=== PATIENT | male | born 1950 | race Caucasian/White ===

== ENCOUNTER 2018-10-22 16:52 | Emergency (ER) | payer OTHER, SELFPAY ==
[2018-10-22 17:05] VITALS: BP 146/89; PULSE 56; RESP 14; TEMP 36.5; O2SAT 96; BMI 33.6
--- NOTE | 2018-10-22 17:25 | DI.RAD.S_ITS ---
PROCEDURE: XR CHEST 1V INDICATIONS: chest pain TECHNIQUE: One view of the chest was acquired. COMPARISON: None. FINDINGS: Surgical changes and devices: None. Lungs and pleura: No pleural effusions or pneumothorax. Lungs are clear. Mediastinum: Mediastinal contours appear normal. Heart size is normal. Bones and chest wall: No suspicious bony lesions. Overlying soft tissues appear unremarkable. IMPRESSION: No acute pulmonary process. Dictated by: Erika Andersen M.D. on 10/22/2018 at 17:46 Approved by: Erika Andersen M.D. on 10/22/2018 at 17:47
[2018-10-22 17:32] LABS: Add Manual Diff / Slide Review NO; Basophils Percent Auto 0.8 % (0-2); Eosinophils Percent Auto 2.3 % (2-4); Hematocrit 42.5 % (41-53); Hemoglobin 15.1 g/dL (13.5-17.5); Lymphocytes Percent Auto 24.6 % (25-40); Mean Corpuscular HGB Conc 35.6 % (30-36); Mean Corpuscular Hemoglobin 32.8 PG (26-34); Mean Corpuscular Volume 92.1 fL (80-100); Neutrophils Absolute Auto 4200 /uL (1500-7000); Neutrophils Percent Auto 65.3 % (50-75); Platelet Count 227 X10^3/uL (150-400); Red Blood Cell Count 4.62 X10^6/uL (4.5-5.9); Red Cell Distribution Width 12.6 % (11.6-14.8); White Blood Cell Count 6.5 X10^3/uL (4.5-11.0)
--- NOTE | 2018-10-22 17:33 | PC.NURSE ---
pt states he has been having high blood pressure since Reuben, Provider at bedside. Pt denies CP at this time. Pt states he is not currently having any pain. No new orders at this time.
[2018-10-22 17:34] LABS: Prothrombin Time 11.4 SECONDS (10.1-12.7)
[2018-10-22 17:37] LABS: PTT Partial Thromboplastin Tim 36 SECONDS (26.4-36.2)
[2018-10-22] MEDS: SODIUM CHLORIDE 0.9% 1,000 ML 150 ML IV (17:46)
[2018-10-22 17:47] LABS: Alanine Aminotransferase 24 IU/L (21-72); Albumin 4.8 g/dL (3.5-5.0); Albumin Globulin Ratio 1.4 (1.0-2.8); Alkaline Phosphatase 95 U/L (38-126); Aspartate Aminotransferase 33 IU/L (17-59); Bilirubin Total 0.7 mg/dL (0.2-1.3); Blood Urea Nitrogen 19 mg/dL (9-20); Calcium 9.5 mg/dL (8.4-10.2); Carbon Dioxide 28 mmol/L (22-32); Chloride 102 mmol/L (98-107); Creatine Kinase 80 U/L (55-170); Estimated Glomerular Filt Rate > 60.0 mL/min (>60); Globulin 3.4 g/dL (1.7-4.1); Glucose 94 mg/dL (80-110); Lipase 89 U/L (23-300); Sodium 141 mmol/L (137-145); Total Protein 8.2 g/dL (6.3-8.2)
[2018-10-22 17:49] LABS: HEMOLYSIS 74 (0-50)
[2018-10-22 17:50] LABS: Potassium 4.8 mmol/L (3.4-5.1)
[2018-10-22 18:11] LABS: Troponin I < 0.012 ng/mL (0.01-0.034)
--- NOTE | 2018-10-22 18:52 | ED_ITS ---
HPI - Dizziness General Chief Complaint: Dizziness Stated Complaint: dizziness, abn EKG Time Seen by Provider: 10/22/18 17:19 Source: patient Mode of arrival: ambulatory Limitations: no limitations History of Present Illness HPI Narrative: The patient is a 68-year-old male who presents with dizziness, sent from the walk-in clinic with EKG changes. He says he has been having dizzy episodes off and on for the last 2 weeks. They last for 1-3 seconds. He has no chest pain heart palpitations nausea weakness or vision changes. His friend who is a nurse practitioner took his blood pressure at some point decided it was elevated him and started him on some lisinopril which is not his own. He went to the walk-in clinic today for the dizzy episodes. The dizzy spells come on at random, not instigated. Related Data Home Medications Medication Instructions Recorded Confirmed lisinopril 10 mg tablet 20 mg PO DAILY 10/22/18 10/22/18 Allergies Allergy/AdvReac Type Severity Reaction Status Date / Time No Known Drug Allergies Allergy Verified 10/22/18 17:19 Review of Systems Review of Systems All systems reviewed & are unremarkable except as noted in HPI and below Constitutional Denies chills, Denies fever(s), Denies lethargy and Denies weakness ENT Ears, Nose, Mouth, and Throat: Reports dizziness Cardiovascular Denies chest pain, Denies irregular heart rhythm, Denies lightheadedness, Denies palpitations, Denies dyspnea, Denies dyspnea on exertion and Denies orthopnea Respiratory Denies cough, Denies dyspnea, Denies dyspnea on exertion and Denies wheezing Gastrointestinal Gastrointestinal: Denies abdominal pain, Denies change in bowel habits, Denies diarrhea, Denies nausea and Denies vomiting Genitourinary Denies hematuria, Denies flank pain, Denies urinary incontinence and Denies urinary urgency Musculoskeletal Denies back pain, Denies muscle weakness, Denies numbness and Denies tingling Integumentary/Breasts Denies pruritus, Denies erythema, Denies rash and Denies wounds Neurologic Reports as per HPI, Denies confusion, Reports dizziness, Denies numbness, Denies tingling and Denies weakness Psychiatric Denies anxiety, Denies confusion, Denies depression, Denies homicidal ideation and Denies suicidal ideation Endocrine Denies palpitations Allergic/Immunologic Denies wheezing FOR[facility]LY [facility] Medical History Hearing loss (Chronic) Erectile dysfunction (Chronic) 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 Grandfather Tuberculosis Grandmother Tuberculosis Grandfather Syphilis Grandmother No problems noted. Family/Other Diabetes mellitus Social History Smoking Status: Former smoker Exam Initial Vital Signs Initial Vital Signs: Vital Signs Temperature 97.7 F 10/22/18 17:05 Pulse Rate 56 L 10/22/18 17:05 Respiratory Rate 14 10/22/18 17:05 Blood Pressure 146/89 H 10/22/18 17:05 Pulse Oximetry 96 10/22/18 17:05 GENERAL: Well-appearing, well-nourished and in no acute distress. HEENT: Head atraumatic,EOMI, pupils reactive, face symmetric CARDIOVASCULAR: Regular rate and rhythm without murmurs, rubs or gallops. RESPIRATORY: Breath sounds equal bilaterally, no wheezes rales or rhonchi. ABDOMEN: Soft, nontender. Normoactive bowel sounds all 4 quadrants. No guarding or rebound. EXTREMITIES: Normal range of motion, no clubbing or edema. Neurovascularly intact NEUROLOGICAL: Alert and oriented x4.Normal gait and speech. Cranial nerves II through XII grossly intact. Medical Technicians strength equal bilaterally SKIN: Warm, dry, no laceration, no petechiae, no rashes or lesions. Scores HEART Score Heart Score history: Slightly Suspicious Heart Score EKG: Normal Heart Score Age: > or = 65 years old Heart Score risk factors: No known risk factors Heart Score troponin: < or = to normal limit Heart Score Total: 2 Course Orders Ordered: ED Orders 10/22/18 17:19 Complete Blood Count AUTO DIFF Stat Comprehensive Metabolic Panel Stat Lipase Stat Partial Thromboplastin Time Stat Prothrombin Time INR Stat Troponin & CK Cardiac Panel Stat 10/22/18 17:25 XR chest 1V Stat Sodium Chloride (Normal Saline 0.9%) 1,000 mls @ 150 mls/hr IV CONT KEITH Last Infusion: 10/22/18 18:54 Dose: 0 mls/hr Admin: 10/22/18 17:46 Dose: 150 mls/hr Vital Signs - 8 hr 10/22/18 17:05 Temperature 97.7 F Pulse Rate 56 L Respiratory Rate 14 Blood Pressure 146/89 H Pulse Oximetry 96 MDM - Dizziness Lab Data Attestation: I reviewed the patient's lab results. Result diagrams: 10/22/18 17:19 10/22/18 17:19 Lab Results 10/22/18 10/22/18 10/22/18 Range/Units 17:19 17:19 17:19 WBC 6.5 (4.5-11.0) X10^3/uL RBC 4.62 (4.5-5.9) X10^6/uL Hgb 15.1 (13.5-17.5) g/dL Hct 42.5 (41-53) % MCV 92.1 (80-100) fL MCH 32.8 (26-34) PG MCHC 35.6 (30-36) % RDW 12.6 (11.6-14.8) % Plt Count 227 (150-400) X10^3/uL Neut % (Auto) 65.3 (50-75) % Lymph % (Auto) 24.6 L (25-40) % [place] % (Auto) 7.0 (3-14) % Eos % (Auto) 2.3 (2-4) % Baso % (Auto) 0.8 (0-2) % Neut # (Auto) 4200 (1944-9314) /uL PT 11.4 (10.1-12.7) SECONDS INR 1.0 (0.9-1.3) APTT 36 (26.4-36.2) SECONDS Sodium 141 (137-145) mmol/L Potassium 4.8 (3.4-5.1) mmol/L Chloride 102 (98-107) mmol/L Carbon Dioxide 28 (22-32) mmol/L BUN 19 (9-20) mg/dL Creatinine 1.00 (0.66-1.25) mg/dL Estimated GFR > 60.0 (>60) mL/min BUN/Creatinine Ratio 19.0 (6-22) Glucose 94 (80-110) mg/dL Calcium 9.5 (8.4-10.2) mg/dL Total Bilirubin 0.7 (0.2-1.3) mg/dL AST 33 (17-59) IU/L ALT 24 (21-72) IU/L Alkaline Phosphatase 95 (38-126) U/L Total Creatine Kinase 80 (55-170) U/L CK-MB (CK-2) TNP CK-MB (CK-2) Rel Index TNP Troponin I < 0.012 (0.01-0.034) ng/mL Total Protein 8.2 (6.3-8.2) g/dL Albumin 4.8 (3.5-5.0) g/dL Globulin 3.4 (1.7-4.1) g/dL Albumin/Globulin Ratio 1.4 (1.0-2.8) Lipase 89 (23-300) U/L Urine Dip Bedside Urine Glucose Negative Bedside Urine Bilirubin - Negative Bedside Urine Ketone - Negative Urine Specific [place] 1.015 Bedside Urine Occult Blood - Negative Bedside Urine pH 6.0 Bedside Urine Protein - Negative Bedside Urine Urobilinogen - Negative Bedside Urine Nitrite - Negative Bedside Urine Leukocytes - Negative Esterase ECG Data Attestation: I personally reviewed and interpreted this ECG as follows: Prior ECG tracings: available for review Interpretation: Normal sinus rhythm rate [address] changes no T-wave inversions actually looks much better from walk-in clinic EKG. W[place] interval 221 1st degree AV block EKG 2. Normal sinus rhythm rate 50 [place] [address] changes similar to prior Discharge Plan Departure Patient Disposition: Home Clinical Impression: Vertigo Instructions: Essential Hypertension Activity Restrictions/Additional Instructions: *You have been diagnosed with dizzy spell *What to do: Dizzy spell kalyanr may not be related to elevated blood pressure. Recommend that he take of blood pressure once a day and record it. He may require further workup with a PCP. EKG, chest x-ray and blood work within normal limits today. *Continue to take medications as directed *Follow up with your primary care provider in 2-3 days *Return to ER if you should have chest pain, shortness of breath, weakness on 1 side, difficulty speaking slurring of speech, facial droop or any new, worsening or concerning symptoms Prescriptions: No Action lisinopril 10 mg tablet 20 mg PO DAILY RF: 0 Referrals: Kwame Jean MD [Physician] -
[2018-10-22 19:09] VITALS: BP 146/77; PULSE 55; RESP 14; O2SAT 96
== END 2018-10-22 19:10 | disposition home or self-care (01) ==
PROVIDERS: Emergency Provider Emergency Medicine
DX: R42 Dizziness and giddiness (principal)
CPT/HCPCS: 36591; 71045; 80053; 81003; 82550; 83690; 84484; 85025; 85610; 85730; 93005; 96360; 99283; 99285

== ENCOUNTER 2019-02-18 17:14 | Emergency (ER) | payer OTHER, MEDICAID, SELFPAY ==
[2019-02-18] VITALS (10 sets, daily range): BP systolic 124–143; BP diastolic 79–92; PULSE 83–98; RESP 16–22; TEMP 35.4; O2SAT 95–100
--- NOTE | 2019-02-18 17:35 | DI.CT.S_ITS ---
PROCEDURE: CT ANGIO CHEST PE PROTOCOL INDICATIONS: syncope and sob TECHNIQUE: After the administration of intravenous contrast, 2 mm thick sections acquired from the pulmonary apices to the posterior costophrenic angles. 3-dimensional maximum intensity projection (MIP) coronal and sagittal reformats were then acquired through the thorax. For radiation dose reduction, the following was used: automated exposure control, adjustment of mA and/or kV according to patient size. COMPARISON: None. FINDINGS: Image quality: Excellent. Pulmonary arteries: Pulmonary arteries are normal in size, and demonstrate no intraluminal filling defects to suggest central pulmonary embolism. Lungs and pleura: No acute consolidation. Scattered subsegmental atelectasis and/or scarring. No pleural effusions or pneumothorax. Central and peripheral airways are patent. Mediastinum: Heart size is normal. Coronary artery calcifications are present. , without pericardial effusion. No mediastinal or hilar adenopathy. Thoracic aorta is normal in caliber and enhancement. Esophagus is normal in caliber, without hiatal hernia. Bones and chest wall: No suspicious bony lesions. Ribs and thoracic spine appear intact throughout. Thyroid gland negative. No axillary or supraclavicular adenopathy. Abdomen: Visualized upper abdominal solid organs appear normal in the early arterial phase of enhancement. IMPRESSION: No evidence of pulmonary embolism. No aortic dissection. Scattered scarring/atelectasis without focal consolidation. Coronary artery disease. Dictated by: Saleem Mtz M.D. on 02/18/2019 at 18:51 Approved by: Saleem Mtz M.D. on 02/18/2019 at 18:54
[2019-02-18] MEDS: SODIUM CHLORIDE 0.9% 1,000 ML 1000 ML IV (17:45)
[2019-02-18 17:46] LABS: Add Manual Diff / Slide Review NO; Basophils Absolute Auto 100 /uL (0-100); Basophils Percent Auto 0.8 % (0-2); Eosinophils Absolute Auto 100 /uL (0-450); Eosinophils Percent Auto 1.1 % (2-4); Hematocrit 43.1 % (41-53); Hemoglobin 14.8 g/dL (13.5-17.5); Lymphocytes Absolute Auto 1800 /uL (1100-4500); Lymphocytes Percent Auto 23.2 % (25-40); Mean Corpuscular HGB Conc 34.4 % (30-36); Mean Corpuscular Hemoglobin 32.4 PG (26-34); Mean Corpuscular Volume 94.1 fL (80-100); Monocytes Absolute Auto 600 /uL (0-900); Monocytes Percent Auto 7.4 % (3-14); Neutrophils Absolute Auto 5200 /uL (1500-7000); Neutrophils Percent Auto 67.5 % (50-75); Platelet Count 252 X10^3/uL (150-400); Red Blood Cell Count 4.58 X10^6/uL (4.5-5.9); Red Cell Distribution Width 13.2 % (11.6-14.8); White Blood Cell Count 7.8 X10^3/uL (4.5-11.0)
--- NOTE | 2019-02-18 17:50 | PC.NURSE ---
Pt feeling better,less dizzy and is not as pale as he was when he arrived to ED.
[2019-02-18 17:51] LABS: Alanine Aminotransferase 29 IU/L (21-72); Albumin 4.8 g/dL (3.5-5.0); Albumin Globulin Ratio 1.7 (1.0-2.8); Alkaline Phosphatase 102 U/L (38-126); Aspartate Aminotransferase 37 IU/L (17-59); BUN Creatinine Ratio 16.4 (6-22); Bilirubin Total 0.8 mg/dL (0.2-1.3); Blood Urea Nitrogen 18 mg/dL (9-20); Calcium 9.2 mg/dL (8.4-10.2); Carbon Dioxide 26 mmol/L (22-32); Chloride 104 mmol/L (98-107); Creatine Kinase 185 U/L (55-170); Estimated Glomerular Filt Rate > 60.0 mL/min (>60); Globulin 2.9 g/dL (1.7-4.1); Glucose 117 mg/dL (80-110); HEMOLYSIS < 15 (0-50); Sodium 140 mmol/L (137-145); Total Protein 7.7 g/dL (6.3-8.2)
[2019-02-18 18:03] LABS: Troponin I < 0.012 ng/mL (0.01-0.034)
--- NOTE | 2019-02-18 18:03 | ED.GENADULT ---
HPI - General Adult General Chief complaint: Syncope Stated complaint: Collapsed Time Seen by Provider: 02/18/19 17:35 Source: patient Mode of arrival: ambulatory Limitations: no limitations History of Present Illness HPI narrative: 68-year-old male here for evaluation of not feeling well and shortness of breath and presyncope. Patient states that he was at the gym at around 0700 hours this morning. He states that he was doing exercises when he was done with a set he became short of breath. He states that it took him much longer to catch his breath afterwards but was able to catch his breath after sitting for an extended period of time. He was able to continue exercising. He states that he went back to his baseline. Again in the afternoon he was just walking where again he became extremely short of breath. He states that it felt exactly like it did earlier in the day. He did have to rest and the symptoms resolved. The 3rd episode was approximately 1 hour prior to arrival here in the emergency department. He was coming down off of a ladder when again he became very short of breath he. He states that this time he had to go and sit down. He states that he was starting to see lights. He stated that he was nauseous but did not throw up. He states that he felt like he was going to pass out but never did pass out. He states that these episode lasted ?minutes ?he does not know exactly how long. They were not associated with any other symptoms. at the time of my evaluation patient states that he just feels ?depressed? meaning that he feels ?flu-like? with generalized malaise. He states that he still has not completely recovered from the last shortness of breath episode by the time I evaluated him here in the ER. Related Data Home Medications Medication Instructions [facility]ed [facility] B[facility] #1 ea 01/28/19 01/28/19 Allergies Allergy/AdvReac Type Severity Reaction Status Date / Time No Known Drug Allergies Allergy Verified 01/28/19 09:06 Review of Systems Constitutional Reports fatigue, Denies fever(s), Reports lethargy, Reports malaise and Reports weakness Eyes Denies change in vision ENT Ears, Nose, Mouth, and Throat: Denies vertigo, Reports disequilibrium and Denies sore throat Cardiovascular Denies chest pain, Denies syncope, Denies palpitations, Reports dyspnea and Reports dyspnea on exertion Respiratory Reports dyspnea and Reports dyspnea on exertion Gastrointestinal Gastrointestinal: Denies abdominal pain, Reports nausea and Denies vomiting Musculoskeletal Denies myalgias, Denies arthralgias and Reports tingling Integumentary/Breasts Denies lesions and Denies rash Neurologic Denies confusion, Denies vertigo, Denies syncope, Reports lack of coordination, Denies focal weakness, Reports tingling, Reports disequilibrium and Reports weakness Psychiatric Denies confusion Endocrine Reports fatigue, Denies flushing and Denies palpitations Hematologic/Lymphatic Denies easy bleeding and Denies easy bruising Allergic/Immunologic Denies urticaria [facility] Medical History Hearing loss (Chronic) Erectile dysfunction (Chronic) 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 Grandfather Tuberculosis Grandmother Tuberculosis Grandfather Syphilis Grandmother No problems noted. Family/Other Diabetes mellitus Social History Smoking Status: Former smoker Family History Father Suicide Mother No problems noted. Grandfather Tuberculosis Grandmother Tuberculosis Grandfather Syphilis Grandmother No problems noted. Family/Other Diabetes mellitus Social History Smoking Status: Former smoker Exam Initial Vital Signs Initial Vital Signs: Vital Signs Temperature 95.7 F L 02/18/19 17:15 Pulse Rate 98 H 02/18/19 17:15 Respiratory Rate 20 02/18/19 17:15 Blood Pressure 135/90 02/18/19 17:15 Pulse Oximetry 96 02/18/19 17:15 Const General: cooperative, comfortable, well developed, well groomed and No acute distress Orientation: alert, awake and oriented x3 HENMT Head: normal to inspection and normocephalic Resp Effort & Inspection: normal respiratory effort Auscultation: clear to auscultation bilaterally Cardio Rate: regular rate Rhythm: regular rhythm Pulses: radial pulses present GI Inspection: non-distended Palpation: soft, No firm and No tender Skin Lesions: no lesions Rashes: no rashes Neuro General: alert, awake and oriented x3 Cranial Nerves: CN's II-XI intact bilaterally Cognition: normal cognition Speech: speech normal Motor: muscle tone normal throughout Sensory Exam: no sensory deficits noted Extrem General: normal to inspection and capillary refill normal Psych Appearance: grossly normal and well kempt Scores HEART Score Heart Score history: Slightly Suspicious Heart Score EKG: Non-Specific repolarization disturbance Heart Score Age: > or = 65 years old Heart Score risk factors: No known risk factors Heart Score troponin: < or = to normal limit Heart Score Total: 3 Course Orders Ordered: ED Orders 02/18/19 17:20 B Type Natriuretic Peptide Stat Complete Blood Count AUTO DIFF Stat Comprehensive Metabolic Panel Stat Troponin & CK Cardiac Panel Stat 02/18/19 17:23 EKG-12 Lead Stat 02/18/19 17:35 CT angio chest PE protocol Stat 02/18/19 19:55 Respiratory Panel (Film Array) Stat Discontinued Medications Sodium Chloride (Normal Saline 0.9%) 1,000 mls @ 1,000 mls/hr IV BOLUS ONE Stop: 02/18/19 18:34 Last Infusion: 02/18/19 18:47 Dose: 0 mls/hr Admin: 02/18/19 17:45 Dose: 1,000 mls/hr Vital Signs - 8 hr 02/18/19 17:15 02/18/19 18:03 02/18/19 18:30 Temperature 95.7 F L Pulse Rate 98 H 85 84 Pulse Rate [Orthostatic Lying] Pulse Rate [Orthostatic Sitting] Pulse Rate [Orthostatic Standing] Respiratory Rate 20 22 18 Blood Pressure 135/90 Blood Pressure [Orthostatic Lying] Blood Pressure [Orthostatic Sitting] Blood Pressure [Orthostatic Standing] Blood Pressure [Right Arm] 124/79 Pulse Oximetry 96 96 100 02/18/19 18:44 02/18/19 19:02 02/18/19 19:03 Temperature Pulse Rate 84 85 Pulse Rate [Orthostatic Lying] 84 Pulse Rate [Orthostatic Sitting] 83 Pulse Rate [Orthostatic Standing] 85 Respiratory Rate Blood Pressure Blood Pressure [Orthostatic Lying] 133/82 Blood Pressure [Orthostatic Sitting] 134/89 Blood Pressure [Orthostatic Standing] 143/88 H Blood Pressure [Right Arm] 133/82 143/88 H Pulse Oximetry 02/18/19 19:30 02/18/19 20:00 02/18/19 20:30 Temperature Pulse Rate 84 84 84 Pulse Rate [Orthostatic Lying] Pulse Rate [Orthostatic Sitting] Pulse Rate [Orthostatic Standing] Respiratory Rate 20 17 16 Blood Pressure Blood Pressure [Orthostatic Lying] Blood Pressure [Orthostatic Sitting] Blood Pressure [Orthostatic Standing] Blood Pressure [Right Arm] 133/87 140/88 128/81 Pulse Oximetry 96 98 95 02/18/19 21:40 Temperature Pulse Rate 85 Pulse Rate [Orthostatic Lying] Pulse Rate [Orthostatic Sitting] Pulse Rate [Orthostatic Standing] Respiratory Rate 20 Blood Pressure Blood Pressure [Orthostatic Lying] Blood Pressure [Orthostatic Sitting] Blood Pressure [Orthostatic Standing] Blood Pressure [Right Arm] 131/92 H Pulse Oximetry 95 Medical Decision Making Lab Data Lab results reviewed: Yes I reviewed the patient's lab results. Result diagrams: 02/18/19 17:20 02/18/19 17:20 Lab Results 02/18/19 02/18/19 02/18/19 Range/Units 17:20 17:20 19:55 WBC 7.8 (4.5-11.0) X10^3/uL RBC 4.58 (4.5-5.9) X10^6/uL Hgb 14.8 (13.5-17.5) g/dL Hct 43.1 (41-53) % MCV 94.1 (80-100) fL MCH 32.4 (26-34) PG MCHC 34.4 (30-36) % RDW 13.2 (11.6-14.8) % Plt Count 252 (150-400) X10^3/uL Neut % (Auto) 67.5 (50-75) % Lymph % (Auto) 23.2 L (25-40) % Crosby % (Auto) 7.4 (3-14) % Eos % (Auto) 1.1 L (2-4) % Baso % (Auto) 0.8 (0-2) % Neut # (Auto) 5200 (8520-2688) /uL Lymph # (Auto) 1800 (3779-7838) /uL Crosby # (Auto) 600 (0-900) /uL Eos # (Auto) 100 (0-450) /uL Baso # (Auto) 100 (0-100) /uL Sodium 140 (137-145) mmol/L Potassium 4.0 (3.4-5.1) mmol/L Chloride 104 (98-107) mmol/L Carbon Dioxide 26 (22-32) mmol/L BUN 18 (9-20) mg/dL Creatinine 1.10 (0.66-1.25) mg/dL Estimated GFR > 60.0 (>60) mL/min BUN/Creatinine Ratio 16.4 (6-22) Glucose 117 H (80-110) mg/dL Calcium 9.2 (8.4-10.2) mg/dL Total Bilirubin 0.8 (0.2-1.3) mg/dL AST 37 (17-59) IU/L ALT 29 (21-72) IU/L Alkaline Phosphatase 102 (38-126) U/L Total Creatine Kinase 185 H (55-170) U/L CK-MB (CK-2) 1.48 (<2.37) ng/mL CK-MB (CK-2) Rel Index 0.8 L (1.5-5.0) % Troponin I < 0.012 (0.01-0.034) ng/mL B-Natriuretic Peptide < 100 (<100) Total Protein 7.7 (6.3-8.2) g/dL Albumin 4.8 (3.5-5.0) g/dL Globulin 2.9 (1.7-4.1) g/dL Albumin/Globulin Ratio 1.7 (1.0-2.8) Chlamy pneumoniae PCR Not detected (Not Detect) Adenovirus (PCR) Not detected (Not Detect) B.parapertussis DNA PCR Not detected (Not Detect) Coronavirus OC43 (PCR) Not detected (Not Detect) Coronavirus HKU1 (PCR) Not detected (Not Detect) Coronavirus 229E (PCR) Not detected (Not Detect) Coronavirus NL63 (PCR) Not detected (Not Detect) Human Metapneumovir PCR Not detected (Not Detect) Influenza Type A (PCR) Not detected (Not Detect) Influenza Type B (PCR) Not detected (Not Detect) M. pneumoniae (PCR) Not detected (Not Detect) Parainfluenza 1 (PCR) Not detected (Not Detect) Parainfluenza 2 (PCR) Not detected (Not Detect) Parainfluenza 3 (PCR) Not detected (Not Detect) Parainfluenza 4 (PCR) Not detected (Not Detect) RSV (PCR) Not detected (Not Detect) Entero/Rhino (PCR) Not detected (Not Detect) Point of Care Testing Glucose POC 120 Urine Dip Bedside Urine Glucose Negative Bedside Urine Bilirubin - Negative Bedside Urine Ketone - Negative Urine Specific [place] 1.010 Bedside Urine Occult Blood - Negative Bedside Urine pH 7.5 Bedside Urine Protein + 30 Bedside Urine Urobilinogen - Negative Bedside Urine Nitrite - Negative Bedside Urine Leukocytes - Negative Esterase Point of care testing: Point of Care Testing Glucose POC 120 Urine Dip Bedside Urine Glucose Negative Bedside Urine Bilirubin - Negative Bedside Urine Ketone - Negative Urine Specific [place] 1.010 Bedside Urine Occult Blood - Negative Bedside Urine pH 7.5 Bedside Urine Protein + 30 Bedside Urine Urobilinogen - Negative Bedside Urine Nitrite - Negative Bedside Urine Leukocytes - Negative Esterase Imaging Data CT scan - chest: Radiologist's impression: Patient: Jey Nielson AMR#: [id number] : 1Acct:[id number] Age/Sex: 68 / MDate of Service: 02/18/19 Loc: ED Accession Number: [id number] Procedure: CT angio chest PE protocol Ordering Provider: Judi Bobo D.O. PROCEDURE: CT ANGIO CHEST PE PROTOCOL INDICATIONS: syncope and sob TECHNIQUE: After the administration of intravenous contrast, 2 mm thick sections acquired from the pulmonary apices to the posterior costophrenic angles. 3-dimensional maximum intensity projection (MIP) coronal and sagittal reformats were then acquired through the thorax. For radiation dose reduction, the following was used: automated exposure control, adjustment of mA and/or kV according to patient size. COMPARISON: None. FINDINGS: Image quality: Excellent. Pulmonary arteries: Pulmonary arteries are normal in size, and demonstrate no intraluminal filling defects to suggest central pulmonary embolism. Lungs and pleura: No acute consolidation. Scattered subsegmental atelectasis and/or scarring. No pleural effusions or pneumothorax. Central and peripheral airways are patent. Mediastinum: Heart size is normal. Coronary artery calcifications are present. , without pericardial effusion. No mediastinal or hilar adenopathy. Thoracic aorta is normal in caliber and enhancement. Esophagus is normal in caliber, without hiatal hernia. Bones and chest wall: No suspicious bony lesions. Ribs and thoracic spine appear intact throughout. Thyroid gland negative. No axillary or supraclavicular adenopathy. Abdomen: Visualized upper abdominal solid organs appear normal in the early arterial phase of enhancement. IMPRESSION: No evidence of pulmonary embolism. No aortic dissection. Scattered scarring/atelectasis without focal consolidation. Coronary artery disease. Dictated by: Saleem Mtz M.D. on 02/18/2019 at 18:51 ECG Data Attestation: I personally reviewed and interpreted this ECG as follows: Prior ECG tracings: not available for review Interpretation: Sinus rhythm Ventricular rate 86 Left axis deviation Normal QRS Normal QTC Nonspecific ST T wave changes MDM Narrative Medical decision making narrative: Patient's symptoms have improved since his time being here in the emergency department. He has had no ectopy while being on the monitor. His CTA was negative for a pulmonary embolism. His orthostatics were negative however this was after he received 1 L of fluid. His symptoms today did seem to occur when he was exerting himself. He did not have any chest pain. He has heart score 3. I do have some concern that his symptoms resulted when he was exerting himself and given the shortness of breath that this could be a anginal equivalent. I discussed the case with JOSE Isaac who is the night hospitalist who recommended obtaining a respiratory panel to see if he potentially had something like the flu which would explain his malaise. The initial respiratory panel was run the improper way down in the lab and had to be repeated. This did delay the patient's stay here in the emergency department. I did inform the patient that I felt like he did need a stress test however given his lack of a primary doctor could result in him being admitted to the hospital have this completed. During this discussion a friend who happened to be JOSE seo from the [facility] was at bedside who stated that she could follow up with the patient and take him on as a patient. She stated that she could follow him up in order the stress test. The patient was okay with this. He was given the phone number for [facility]. His symptoms could very well be dehydration as well. the patient did opt to be discharged prior to the return of his respiratory panel. I contacted the number which he provided me and left a message telling him that there was no indication for any antibiotics. Prior to being discharge patient was given return precautions and follow-up instructions. He expressed understanding and agreement with plan. I have low suspicion for neurologic process. He never lost consciousness. His symptoms were presyncopal not syncopal. Discharge Plan Departure Patient Disposition: Home Clinical Impression: Shortness of breath, Pre-syncope Discharge Date/Time: 02/18/19 21:56 Interventions: ED Discharge Assessment Last Done: 02/18/19 21:55 Instructions: DI for Shortness of Breath Activity Restrictions/Additional Instructions: Tomorrow call JOSE seo at the [facility]. Their number is [phone]. You need to discuss the indications for stress testing with her. Return to the emergency department for any new or worsening symptoms Prescriptions: No Action [facility] Aircurve 10 BIPAP Qty: 1 RF: 0
[2019-02-18 18:06] LABS: CKMB % Relative Index 0.8 % (1.5-5.0); Creatine Kinase MB 1.48 ng/mL (<2.37)
[2019-02-18 18:08] LABS: B Type Natriuretic Peptide < 100 (<100)
[2019-02-18 22:38] LABS: Adenovirus Not Detected (Not Detect); Bordetella pertussis Not Detected (Not Detect); Chlamydophila pneumoniae Not Detected (Not Detect); Coronavirus 229E Not Detected (Not Detect); Coronavirus HKU1 Not Detected (Not Detect); Coronavirus NL 63 Not Detected (Not Detect); Coronavirus OC43 Not Detected (Not Detect); Human Metapneumovirus Not Detected (Not Detect); Human Rhinovirus/Enterovirus Not Detected (Not Detect); Influenza A Not Detected (Not Detect); Influenza B Not Detected (Not Detect); Mycoplasma pneumoniae Not Detected (Not Detect); Parainfluenza Virus 1 Not Detected (Not Detect); Parainfluenza Virus 2 Not Detected (Not Detect); Parainfluenza Virus 3 Not Detected (Not Detect); Parainfluenza Virus 4 Not Detected (Not Detect); Respiratory Syncytial Virus Not Detected (Not Detect)
== END 2019-02-18 21:56 | disposition home or self-care (01) ==
PROVIDERS: Emergency Medicine; Emergency Provider Emergency Medicine
DX: R06.02 Shortness of breath (principal); R55 Syncope and collapse; R53.1 Weakness; R11.0 Nausea; H53.8 Other visual disturbances
CPT/HCPCS: 36591; 71275; 80053; 81003; 82550; 82553; 82962; 83880; 84484; 85025; 87633; 93005; 93041; 96360; 99285; Q9967

== ENCOUNTER → 2019-02-20 08:38 | Outpatient (CLI) | payer OTHER, SELFPAY ==
[2019-02-20 09:49] LABS: Cholesterol 205 mg/dL (140-199); HDL Cholesterol 41 mg/dL (40-60); LDL Cholesterol Calculated 141 mg/dL (<100); Triglycerides 116 mg/dL (35-150)
[2019-02-20 10:30] LABS: TSH w/ Reflex to FT4 1.58 uIU/mL (0.47-4.68)
== END ==
PROVIDERS: Visit Provider Nurse Practitioner
DX: R06.02 Shortness of breath (principal); R55 Syncope and collapse
CPT/HCPCS: 36415; 80061; 84443

== ENCOUNTER → 2019-02-24 11:02 | Outpatient (CLI) | payer OTHER, MEDICAID, SELFPAY ==
--- NOTE | 2019-02-24 12:59 | PM.TREADMILL ---
Cardiac Stress Test Report Referral & Results Date Patient Seen: 02/24/19 Requesting provider: Amalia Elizondo Indication: Syncope/presyncope with exercise Rest ECG: Unremarkable Procedure Note: Today following both written and verbal informed consent, the patient was exercised according to a standard Anthony protocol. The patient exercised for a total of 6 minutes 28 seconds achieving a maximum heart rate of 242. Patient's maximum systolic blood pressure was 160. This was an estimated 7.0 MET's. Merely upon standing to get on the treadmill the patient went from a sinus rhythm with heart rate of 87 to a supraventricular or atrial tachycardia with heart rate of 131. He did slow down into the 110 range with onset of exercise but his heart rate quickly went 127 and stayed there for the duration of the monitoring period until near and exercise he went into a extremely fast relatively narrow complex tachycardia that is probably supraventricular in origin based on his rhythm prior to the onset although very difficult to distinguish from ventricular tachycardia. With this patient felt very syncopal and the test was immediately stopped. He was returned to a supine position on the gurney and with various vasovagal maneuvers converted back to a sinus tachycardia. There are no ST-T segment changes present after he converted back to sinus tachycardia Impression: Significant conduction systems turbinates as above that I believe to be more likely than not supraventricular in origin although difficult to ascertain based on today's study. Patient clearly needs urgent consultation with creative writing teacher. This will be communicated to patient's referring physician. Patient was also instructed not to exercise beyond about 50% of the exertion he put in today on the treadmill and to seek immediate care should he have recurrent episode Please note: Actual ECG tracings can be found in the PACS system.
--- NOTE | 2019-02-24 13:02 | P.PCN_ITS ---
Cardiac Stress Test Report Referral & Results Date Patient Seen: 02/24/19 Requesting provider: Amalia Elizondo Indication: Syncope/presyncope with exercise Rest ECG: Unremarkable Procedure Note: Today following both written and verbal informed consent, the patient was exercised according to a standard Anthony protocol. The patient exercised for a total of 6 minutes 28 seconds achieving a maximum heart rate of 242. Patient's maximum systolic blood pressure was 160. This was an estimated 7.0 MET's. Merely upon standing to get on the treadmill the patient went from a sinus rhythm with heart rate of 87 to a supraventricular or atrial tachycardia with heart rate of 131. He did slow down into the 110 range with onset of exercise but his heart rate quickly went 127 and stayed there for the duration of the monitoring period until near and exercise he went into a extremely fast relatively narrow complex tachycardia that is probably supraventricular in origin based on his rhythm prior to the onset although very difficult to distinguish from ventricular tachycardia. With this patient felt very syncopal and the test was immediately stopped. He was returned to a supine position on the gurney and with various vasovagal maneuvers converted back to a sinus tachycardia. There are no ST-T segment changes present after he converted back to sinus tachycardia Impression: Significant conduction systems turbinates as above that I believe to be more likely than not supraventricular in origin although difficult to as certain based on today's study. Patient clearly needs urgent consultation with pipe organ technician. This will be communicated to patient's referring physician. Patient was also instructed not to exercise beyond about 50% of the exertion he put in today on the treadmill and to seek immediate care should he have recurrent episode Please note: Actual ECG tracings can be found in the PACS system.
== END ==
PROVIDERS: Visit Provider Nurse Practitioner
DX: R55 Syncope and collapse (principal); I49.9 Cardiac arrhythmia, unspecified
CPT/HCPCS: 93016; 93017; 93018

== ENCOUNTER → 2019-04-01 09:05 | Outpatient (CLI) | payer OTHER, MEDICAID, SELFPAY ==
--- NOTE | 2019-04-01 | DI.ECHO.S_ITS ---
[place] [facility]---------[facility] +---------+ : : [address] : : : : [id number] : : : : Phone: [phone] Echocardiogram Report + + :Name: DORENE MENA Study Date: 04/01/2019 Height: 73 in : :[facility] Exam Location: IS Weight: 249 lb : : Gender: Male BSA: 2.4 m2 : :: 1950 Age: 69 yrs BP: 130/88 mmHg: :Reason For Study: AFLUTTER : : Performed By: Magdaleno Stapleton : :Referring: ANASTACIO BEDOLLA : + + Interpretation Summary Afib with controlled rate. Normal LV size and wall thickness. Normal wall motion and LV systolic function. EF is 50-55%. Moderate biatrial enlargement. No significant valvular abnormalities. Mildly dilated aortic root and ascending aorta. No prior study available for comparison. Procedure: A two-dimensional transthoracic echocardiogram with color flow and Doppler was performed. The study quality was technically adequate. There is no prior echocardiogram noted for this patient. The patient was in atrial fibrillation with heart rates between 61-84 bpm during the exam. Left Ventricle: There is normal left ventricular wall thickness. The ejection fraction is estimated to be 50-55%. There are no focal wall motion abnormalities. Diastolic function could not be accurately assessed due to atrial fibrillation. Right Ventricle: The right ventricle is mildly dilated. The right ventricular systolic function is normal. Atria: There is moderate biatrial enlargement. The interatrial septum is intact with no evidence for an atrial septal defect. Mitral Valve: The mitral valve is normal in structure and function. There is trace mitral regurgitation. Aortic Valve: The aortic valve is trileaflet. The aortic valve opens well. No aortic regurgitation is present. Tricuspid Valve: The tricuspid valve is normal in structure and function. No tricuspid regurgitation. Pulmonic Valve: The pulmonic valve is not well seen, but is grossly normal. There is trace pulmonic regurgitation. Great Vessels: The aortic root is mildly dilated. The ascending aorta is mildly enlarged. The pulmonary artery is normal size. The IVC is of normal diameter and collapses greater than 50% with a sniff. This suggests a low right atrial pressure of 3 mm Hg. Pericardium/ Pleura There is no pericardial effusion. There is no pleural effusion. MMode/2D Measurements & Calculations LVIDd: 5.8 cm LVOT diam: 2.4 cm LVIDs: 3.9 cm Ao root diam: 4.6 cm FS: 32.6 % Aortic Jxn: 3.6 cm EPSS: 1.1 cm asc Aorta Diam: 4.3 cm IVSd: 0.91 cm Ao Arch Diam (Prox Trans): 2.9 cm LVPWd: 0.98 cm LV marinelli. diameter/BSA (cm/m^2): 2.5 LV sys. diameter/BSA (cm/m^2): 1.7 LA dimension: 4.3 cm RA long axis: 6.2 cm LA A2 area: 31.1 cm2 RA area: 27.5 cm2 LA A4 area: 22.7 cm2 RA vol: 103.4 ml LA length (vol): 6.2 cm RA : 43.8 ml/m2 LA vol: 96.6 ml IVC diam: 1.6 cm LA vol index: 40.9 ml/m2 RVD1 (basal): 4.8 cm RVD2 (mid): 4.6 cm Doppler Measurements & Calculations Ao V2 max: 94.5 cm/sec LVOT Max Armen: 83.0 cm/sec Ao V2 mean: 68.3 cm/sec LV V1 max P.8 mmHg Ao max P.6 mmHg LV V1 VTI: 16.2 cm Ao mean P.0 mmHg SWEETIE(I,D): 4.2 cm2 Ao V2 VTI: 18.2 cm SWEETIE(V,D): 4.1 cm2 sev ratio: 0.89 SWEETIE indexed to BSA (cm^2/m^2): 1.8 MV E max armen: 80.0 cm/sec PA V2 max: 48.6 cm/sec MV A max armen: 1.3 cm/sec PA V2 mean: 34.8 cm/sec MV E/A: 62.5 PA mean P.53 mmHg Med Peak E' Armen: 9.0 cm/sec PA pr(Accel): 24.1 mmHg E/E' med: 8.9 PA Accel Time: 0.12 sec Lat Peak E' Armen: 9.4 cm/sec E/E' lat: 8.5 E/e' average: 8.7 MV dec time: 0.13 sec SV(LVOT): 76.2 ml Electronically signed by: Marcelle Bates M.D. on Reading Physician:04/02/2019 03:00 AM
== END ==
PROVIDERS: PCP Nurse Practitioner; Visit Provider Internal Medicine Cardiovascular Disease
DX: I48.3 Typical atrial flutter (principal); I77.810 Thoracic aortic ectasia
CPT/HCPCS: 93306